=== PATIENT | male | born 1990 | race Caucasian/White ===

== ENCOUNTER 2018-03-18 19:43 | Emergency (ER) | payer SELFPAY ==
[~2018-03-18] VITALS: Ht 182.8 cm; Wt 90.7 kg
[~2018-03-18 19:43] MED LIST: COMPAZINE10 MG PO; DICLOFENAC POTA50 MG PO; FLEXERIL10 MG PO; HYDROCODONE BIT1 T11 PO; MOTRIN800 MG PO; PERCOCET 325 MG1 TA7 PO; PHENERGAN25 M1 PO; ROBAXIN750 MG PO; TOBRADEX 0.1%-0.5 ML OPH
[2018-03-18] MEDS ORDERED: NAPROSYN500 MG PO (21:13)
== END 2018-03-18 21:40 | disposition home or self-care (01) ==
LOC: ED 19:43
DX: R07.81 Pleurodynia (principal); V89.2XXA Person injured in unspecified motor-vehicle accident, traffic, initial encounter; Y93.89 Activity, other specified; Y92.410 Unspecified street and highway as the place of occurrence of the external cause; Y99.8 Other external cause status

== ENCOUNTER 2021-11-18 19:50 | Emergency (ER) | payer BC ==
[~2021-11-18] VITALS: Wt 95.3 kg
[~2021-11-18 19:50] MED LIST changes: +NAPROSYN500 MG PO
[2021-11-18 21:27] LABS: BASO % 0.3 % (0.0-1.0); EOS # 0.1 10*3/uL (0.0-0.4); EOS % 1.1 % (1.0-4.0); HEMATOCRIT 43.9 % (42.0-52.0); LYMPH # 1.8 10*3/uL (1.3-4.4); MEAN CORPUSCULAR HGB 30.2 pg (27.0-31.0); MEAN CORPUSCULAR HGB CONC 33.9 g/dl (33.0-37.0); MONO # 1.2 10*3/uL (0.1-1.0); MONO % 15.6 % (3.0-9.0); NEUT # 4.7 10*3/uL (2.3-7.9); NEUT % 59.7 % (47.0-73.0); PLATELET COUNT AUTOMATED 341 10*3/uL (130-400); RED BLOOD COUNT 4.93 10*6/uL (4.50-5.90); RED CELL DISTRI WIDTH 12.7 % (0-14.5); WHITE BLOOD COUNT 7.9 10*3/uL (4.8-10.8)
[2021-11-18 21:42] LABS: ALBUMIN 3.4 gm/dl (3.1-4.5); ALKALINE PHOSPHATASE 74 U/L (45-117); BUN 12 mg/dl (7-24); CHLORIDE 110 mmol/L (98-107); CREATININE 0.97 mg/dL (0.70-1.30); SGOT/AST 16 IU/L (3-35); SGPT/ALT 33 U/L (12-78); SODIUM 140 mmol/L (136-145)
== END 2021-11-18 23:43 | disposition home or self-care (01) ==
LOC: ED 19:50
PROVIDERS: Emergency Medicine
DX: U07.1 COVID-19 (principal)

== ENCOUNTER → 2022-07-02 | Outpatient (CLI) | payer BC | END | disposition home or self-care (01) | LOC: CARD 00:13 | PROVIDERS: ATTEND Internal Medicine Cardiovascular Disease | DX: R07.9 Chest pain, unspecified (principal); Z72.0 Tobacco use; Z82.49 Family history of ischemic heart disease and other diseases of the circulatory system ==

== ENCOUNTER 2024-02-05 19:14 | Emergency (ER) | payer BC ==
[~2024-02-05] VITALS: Ht 182.8 cm; Wt 108.9 kg
[2024-02-05] MEDS ORDERED: Tdap Vaccine 0.5 ML SYR (Adult Vaccine) IM ONE (19:45)
[2024-02-05] MEDS ORDERED: Acetaminophen/Oxycodone 5 MG/325 MG TABLET PO ONE (20:55)
[2024-02-05] MEDS ORDERED: CIPRO500 MG PO (21:20)
== END 2024-02-05 21:21 | disposition home or self-care (01) ==
LOC: ED 19:14
DX: S61.031A Puncture wound without foreign body of right thumb without damage to nail, initial encounter (principal); F17.200 Nicotine dependence, unspecified, uncomplicated; W22.8XXA Striking against or struck by other objects, initial encounter; Y93.89 Activity, other specified; Y92.89 Other specified places as the place of occurrence of the external cause; Y99.8 Other external cause status

== ENCOUNTER 2024-05-31 13:35 | Emergency (ER) | payer BC ==
[~2024-05-31] VITALS: Ht 182.8 cm; Wt 108.9 kg
[~2024-05-31 13:35] MED LIST changes: +CIPRO500 MG PO; +DOXYCYCLINE HY100 M3 PO; +VITAMIN D350 MCG PO
[2024-05-31] MEDS ORDERED: Acetaminophen/Oxycodone 5 MG/325 MG TABLET PO ONE (13:55)
[2024-05-31] MEDS ORDERED: HYDROCODONE-AC1 EAC1 PO (14:08)
== END 2024-05-31 14:27 | disposition home or self-care (01) ==
LOC: ED 13:35
DX: S92.425A Nondisplaced fracture of distal phalanx of left great toe, initial encounter for closed fracture (principal); F17.200 Nicotine dependence, unspecified, uncomplicated; X58.XXXA Exposure to other specified factors, initial encounter; Y93.02 Activity, running; Y92.89 Other specified places as the place of occurrence of the external cause; Y99.8 Other external cause status

== ENCOUNTER 2024-07-13 19:23 | Emergency (ER) | payer BC ==
[~2024-07-13] VITALS: Ht 182.8 cm; Wt 108.9 kg
[~2024-07-13 19:23] MED LIST changes: +HYDROCODONE-AC1 EAC1 PO
[2024-07-13] MEDS ORDERED: SODIUM CHLORIDE 0.9% 1,000 ML IV ONE (19:35)
[2024-07-13] MEDS ORDERED: FAMOTIDINE 50 ML IV ONE (19:35)
[2024-07-13] MEDS ORDERED: methylPREDNISolone sod succ 125 MG VIAL IV ONE (19:35)
[2024-07-13] MEDS ORDERED: diphenhydrAMINE hydrochloride 50 MG/ML VIAL IV ONE (19:35)
[2024-07-13] MEDS ORDERED: PREDNISONE10 MG PO (20:30)
== END 2024-07-13 21:15 | disposition home or self-care (01) ==
LOC: ED 19:23
DX: R21 Rash and other nonspecific skin eruption (principal); T50.995A Adverse effect of other drugs, medicaments and biological substances, initial encounter; F17.200 Nicotine dependence, unspecified, uncomplicated; Y92.009 Unspecified place in unspecified non-institutional (private) residence as the place of occurrence of the external cause

== ENCOUNTER 2024-09-28 17:57 | Emergency (ER) | payer BC ==
[~2024-09-28] VITALS: Ht 182.8 cm; Wt 104.3 kg
[~2024-09-28 17:57] MED LIST changes: +PREDNISONE10 MG PO
[2024-09-28 19:12] LABS: HEMATOCRIT 44.5 % (42.0-52.0); MEAN CELL VOLUME 89.4 fl (80.0-94.0); MEAN CORPUSCULAR HGB 29.7 pg (27.0-31.0); MEAN CORPUSCULAR HGB CONC 33.3 g/dl (33.0-37.0); MEAN PLATELET VOLUME 8.2 fl (9.6-12.3); PLATELET COUNT AUTOMATED 380 10*3/uL (130-400); RED BLOOD COUNT 4.98 10*6/uL (4.50-5.90); RED CELL DISTRI WIDTH 13.1 % (0-14.5); WHITE BLOOD COUNT 14.3 10*3/uL (4.8-10.8)
[2024-09-28 19:19] LABS: MANUAL DIFF REFLEX YES
[2024-09-28 19:35] LABS: ATYPICAL LYMPHS 2 % (0-0); PLATELET SUFFICIENCY NORMAL (NORMAL); TOTAL CELLS COUNTED 100 #CELLS
[2024-09-28 19:37] LABS: ALKALINE PHOSPHATASE 69 U/L (46-116); BUN 15 mg/dl (9-23); CHLORIDE 107 mmol/L (98-107); LIPASE 29 U/L (12-53); POTASSIUM 4.6 mmol/L (3.4-5.1); SGPT/ALT 34 U/L (5-49); TOTAL PROTEIN 7.1 gm/dL (6.0-8.0)
[2024-09-28 19:47] LABS: BILIRUBIN Negative (Negative); BLOOD Negative (Negative); CLARITY Turbid (Clear); COLOR Yellow (Yellow); GLUCOSE Negative (Negative); KETONE Negative (Negative); LEUKO ESTERASE Negative (Negative); NITRITE Negative (Negative); SPECIFIC GRAVITY 1.025 (1.001-1.030)
[2024-09-28] MEDS ORDERED: HYDROCODONE-AC1 EAC1 PO (19:56)
[2024-09-28] MEDS ORDERED: Motrin,Rufen800 MG PO (19:56)
[2024-09-28 19:58] LABS: BACTERIA 2+; WBC 0-2 wbc/hpf (0-5)
[2024-09-28] MEDS ORDERED: Acetaminophen/Hydrocodone 5 MG/325 MG TABLET PO ONE (20:00)
== END 2024-09-28 20:03 | disposition home or self-care (01) ==
LOC: ED 17:57
PROVIDERS: Physician Assistant Medical
DX: K63.89 Other specified diseases of intestine (principal); F17.200 Nicotine dependence, unspecified, uncomplicated

== ENCOUNTER 2025-11-15 15:54 | Emergency (ER) | payer BC ==
[~2025-11-15] VITALS: Ht 180.3 cm; Wt 108.9 kg
[~2025-11-15 15:54] MED LIST changes: +Motrin,Rufen800 MG PO
[2025-11-15] MEDS ORDERED: Acetaminophen/Oxycodone 5 MG/325 MG TABLET PO ONE (16:45)
[2025-11-15] MEDS ORDERED: PREDNISONE20 M1 PO (19:03)
== END 2025-11-15 19:14 | disposition home or self-care (01) ==
LOC: ED 15:54
DX: S39.012A Strain of muscle, fascia and tendon of lower back, initial encounter (principal); E27.8 Other specified disorders of adrenal gland; F17.200 Nicotine dependence, unspecified, uncomplicated; X58.XXXA Exposure to other specified factors, initial encounter; Y93.89 Activity, other specified; Y92.89 Other specified places as the place of occurrence of the external cause; Y99.8 Other external cause status